=== PATIENT | female | born 1995 | race Two or more races ===

== ENCOUNTER 2024-07-24 09:33 | Emergency (ER) | payer SELFPAY ==
[2024-07-24 10:00] VITALS: BP 114/71
[2024-07-24] MEDS: VIBRAMYCIN 100 MG PO (13:25)
--- NOTE | 2024-07-24 13:32 | ED.GENMED ---
History of Present Illness
General
Chief Complaint: Extremity Pain (non-traumatic)
Source: patient
Time Seen by Provider: 07/24/24 11:08
History of Present Illness
History of Present Illness:
29-year-old female presents with redness to the right ankle. The patient gives history through an yeast cake cutter. She states she had a scab on the right ankle about a week or 2 ago. She picked it off. Now she notes redness. Denies proximal pain
just reports pain around the ankle. No fevers. No other medical history
Past History
Past History
ED Past Medical History: None
Phy Exam
Physical Exam
Physical Exam:
CONSTITUTIONAL Vital signs reviewed, Patient alert and oriented to person, place and time. Well-appearing
HEAD atraumatic, normocephalic.
EYES eyelids normal to inspection, Extraocular muscles intact, Conjunctiva normal, Sclera normal.
NECK normal range of motion, Trachea midline, no jugular venous distention.
RESP no respiratory distress
BACK No obvious deformities
UPPER EXTREMITY Gross Range of motion normal, gross motor strength normal
LOWER EXTREMITY Gross range of motion normal, Gross motor strength normal. Area of redness surrounding her right lateral malleolus. There is narrowing of scaling skin right overlying the lateral malleolus. There is some warmth there. She has
normal dorsalis and posterior tibial pulses. There is no proximal spread.
NEURO Speech normal, No focal motor deficits include, Sushant coma scale 15, Memory normal, Cranial Nerves intact to screening exam.
SKIN Skin warm, dry, and normal in color.
PSYCHIATRIC Patient oriented to person place and time, Normal affect.
Course
Orders/Labs/Results
Orders:
Orders
07/24/24 11:36
Ankle, Right 3 view CR [CR Ankle - Right Min 3 Views *] Urgent
Comment:
Reason For Exam: swelling, redness
07/24/24 12:35
Doxycycline [Vibramycin] 100 mg PO NOW STA
Vital Signs
Initial and Last Documented VS:
Initial Vital Signs
Temp Pulse Resp BP Pulse Ox
98.0 F 100 16 114/71 98
07/24/24 10:00 07/24/24 10:00 07/24/24 10:00 07/24/24 10:00 07/24/24 10:00
Last Documented Vital Signs
Temp Pulse Resp BP Pulse Ox
98.4 F 90 16 105/69 100
07/24/24 13:50 07/24/24 13:50 07/24/24 13:50 07/24/24 13:50 07/24/24 13:50
MDM/Problems Addressed
MDM/Problems Addressed:
Cellulitis
*Radiology
Radiology exam reviewed: radiology read reviewed
*Pulse Oximetry
Patient hypoxic: no
*Critical Care Note
Total Time (30-74mins, 75-104mins- exclusive of procedures): Not Applicable
Data Reviewed
Source: patient
Further Testing Considered But Not Given:
Consider CTA but trial of antibiotics is reasonable
Patient Management
Escalation/DeEscalation of care consider admission/obs:
Skin infection after peeling back his scab. I recommended warm compresses. There is some swelling in there and difficulty today where there is a small abscess. Given the location I do not feel that incision is drainage is warranted at this time
pending trial with antibiotics. Recommend outpatient follow-up and warm compresses
ED Attending Note
-
Portions of this chart may have been created with voice recognition software.� Occasional wrong word or��sound alike� substitutions may have occurred due to the inherent limitations of voice recognition software.
Discharge Plan
Departure
Patient Disposition: Home (Routine Discharge)
Date of Disposition: 07/24/24
Time of Disposition: 13:32
Patient with high blood pressure during this ER visit?: No
Discharge Problem:
Cellulitis
Instructions: Cellulitis (skin infection) in adults - ED discharge instructions
Prescriptions:
New
doxycycline monohydrate 100 mg capsule
100 mg PO BID Qty: 20 0RF
Activity Restrictions/Additional Instructions:
Please apply warm compresses 4 times a day for the next 5 days. Return immediately or go to the nearest emergency department for increasing redness, fevers, worsening pain or any other concerns. Please see your doctor in the next 2 days for
follow-up and reevaluation of your skin infection
manuela Russell 5 judie davomida kuniga 4 adrianna iliq kompresslarni qo'llang. Qizarish, isitma, og'riqning kuchayishi yoki boshqa tashvishlar ricardoun marlo qaytib jaimieing estela montaño yaqin favqulodda yordam michele'limgeorgesa bridgett. Marion infektsiyangiznjorge
kuzatish christina qayta baholash lyndsey roy 2 judie dorcas tan
Interventions
Interventions:
*Risk Screen - Suicide Last Done: 07/24/24 10:00
*General Assessment Last Done: 07/24/24 13:50
*Neglect/Abuse Screening Last Done: 07/24/24 10:00
ED- Fall Risk Assessment Last Done: 07/24/24 13:50
*ED COVID-19 Vaccine History Last Done: 07/24/24 13:50
*Nursing Disposition Last Done: 07/24/24 13:50
ED-Skin Assessment Last Done: 07/24/24 13:50
ED-Musculoskeletal Assessment Last Done: 07/24/24 13:50
Discharge Date and Time
Discharge Date/Time: 07/24/24 13:53
Print Language: PARAGUAYAN
[2024-07-24 13:50] VITALS: BP 105/69
== END 2024-07-24 13:53 | disposition home or self-care (01) ==
LOC: EMR 09:33
PROVIDERS: EMERGENCY PHYSICIAN Emergency Medicine
DX: L03.115 Cellulitis of right lower limb (principal)
CPT/HCPCS: 99283; 73610